=== PATIENT | female | born 1980 | race Caucasian/White ===

== ENCOUNTER 2017-08-20 17:09 | Observation (INO) | payer BC, OTHER ==
[~2017-08-20] VITALS: Ht 167.6 cm; Wt 97.5 kg
[~2017-08-20 17:09] MED LIST: ARIP10 PO; BIRTH CONTROL; LEVO-T25 MCG PO; Lamictal150 MG PO
[2017-08-20] MEDS ORDERED: Trihexyphenidyl2 MG PO (18:51)
[2017-08-20] MEDS ORDERED: Ativan0.5 MG PO (18:51)
[2017-08-20] MEDS ORDERED: DIVA500EC PO (18:52)
[2017-08-20] MEDS ORDERED: LATUDA80 MG PO (18:53)
[2017-08-20 18:54] LABS: Bilirubin, Urine Neg (Neg); Blood, Urine Neg (Neg); Glucose Qualitative, Urine Neg (Neg); Ketones, Urine Neg (Neg); Leukocyte Esterase, Urine Neg (Neg); Nitrite, Urine Neg (Neg); Protein, Urine Neg (Neg); Specific Gravity, Urine 1.015 (1.003-1.022); Urobilinogen, Urine NORM (Normal)
[2017-08-20] MEDS ORDERED: TEMA15 (18:54)
[2017-08-20] MEDS ORDERED: Abilify5 MG (18:57)
[2017-08-20 19:01] LABS: Appearance, Urine Clear (Clear); Color, Urine Yellow (P-Yellow)
[2017-08-20 19:05] LABS: Source, Urine Clean Catch
[2017-08-20 19:12] LABS: U Amphetamine Screen Not Detected; U Barbituate Screen Not Detected; U Benzodiazapine Screen DETECTED; U Buprenorphine Screen Not Detected; U Cannabinoids Screen Not Detected; U Cocaine Screen Not Detected; U Methadone Screen Not Detected; U Methamphetamine Screen Not Detected; U Opiates Screen Not Detected; U Oxycodone Screen Not Detected; U Phencyclidine Screen Not Detected; U Propoxyphene Screen Not Detected
[2017-08-20 19:13] LABS: BASOPHILS ABSOLUTE AUTO 0.03 K/mm3 (0.00-0.23); BASOPHILS PERCENT AUTO 0 % (0-2); EOSINOPHILS ABSOLUTE AUTO 0.17 K/mm3 (0.00-0.68); EOSINOPHILS PERCENT AUTO 2 % (0-6); Hematocrit 39.7 % (33.0-51.0); Hemoglobin 12.6 g/dL (11.5-16.0); IMMATURE GRAN ABSOLUTE AUTO 0.05 K/mm3 (0.00-0.10); IMMATURE GRAN PERCENT AUTO 1 % (0-1); LYMPHOCYTES ABSOLUTE AUTO 1.87 K/mm3 (0.84-5.20); LYMPHOCYTES PERCENT AUTO 24 % (21-46); MONOCYTES ABSOLUTE AUTO 0.78 K/mm3 (0.16-1.47); MONOCYTES PERCENT AUTO 10 % (4-13); Mean Corpuscular HGB 28.3 pg (26.0-34.0); Mean Corpuscular HGB Conc 31.7 g/dL (31.5-36.5); Mean Corpuscular Volume 89 fL (80-100); Mean Platelet Volume 9.5 fL (9.1-12.4); NEUTROPHILS ABSOLUTE AUTO 4.86 K/mm3 (1.96-9.15); NEUTROPHILS PERCENT AUTO 63 % (41-73); Platelet Count 309 K/mm3 (150-400); RDW Coefficient Variation 13.5 % (11.7-14.2); RDW Standard Deviation 44.2 fL (35.1-46.3); Red Blood Cell Count 4.45 M/mm3 (3.80-5.20); White Blood Cell Count 7.76 K/mm3 (4.00-11.30)
[2017-08-20 19:36] LABS: Alanine Aminotransfer (ALT/SGP 42 U/L (12-78); Albumin, Blood 3.9 g/dL (3.4-5.0); Alk Phos 68 U/L (50-136); Anion Gap 6 mmol/L (6-16); Aspartate Aminotrans (AST/SGOT 26 U/L (12-37); Bilirubin, Total 0.1 mg/dL (0.1-1.0); Blood Urea Nitrogen 14 mg/dL (8-24); CO2, Blood 30 mmol/L (21-32); Calcium, Blood 9.3 mg/dL (8.5-10.1); Chloride, Blood 104 mmol/L (98-108); Creatinine, Blood 0.94 mg/dL (0.40-1.00); Globulin, Blood 3.9 g/dL (2.2-4.0); Glomerular Filtration Rate >60 (60-); Glucose, Blood 101 mg/dL (70-99); Potassium, Blood 4.2 mmol/L (3.5-5.5); Sodium, Blood 140 mmol/L (136-145); Total Protein, Blood 7.8 g/dL (6.4-8.2); Valproic Acid 70.6 ug/mL (50.0-100.0)
== END 2017-08-24 14:45 | disposition short-term general hospital (02) ==
LOC: ER 17:09 → EOR 17:10
PROVIDERS: Emergency Medicine
DX: F31.4 Bipolar disorder, current episode depressed, severe, without psychotic features (principal); R45.851 Suicidal ideations; M79.89 Other specified soft tissue disorders; T50.905A Adverse effect of unspecified drugs, medicaments and biological substances, initial encounter; Z79.899 Other long term (current) drug therapy
CPT/HCPCS: 80053; 80164; 81003; 81025; 84439; 85025; 99285; G0378; Q3014

== ENCOUNTER → 2018-02-11 | Outpatient (CLI) | payer OTHER ==
[~2018-02-11] MED LIST changes: +Abilify5 MG; +Abilify5 MG PO; +Ativan0.5 MG PO; +DIVA500EC PO; +HYDPAM25 PO; +LATUDA120 MG PO; +OXCA300 PO; +TEMA15 PO; +TEMA30 PO; +Trihexyphenidyl2 MG PO
== END | disposition home or self-care (01) ==
LOC: LAB SHORT 19:07 → LAB EV 19:07
DX: R32 Unspecified urinary incontinence (principal)
CPT/HCPCS: 87086

== ENCOUNTER → 2018-02-24 | Outpatient (CLI) | payer OTHER | LOC: LAB SHORT 16:09 → LAB 16:09 | DX: N91.2 Amenorrhea, unspecified (principal) | CPT/HCPCS: 84702 ==

== ENCOUNTER → 2018-03-15 | Outpatient (CLI) | payer OTHER | END | disposition home or self-care (01) | LOC: LAB 12:12 → LAB SHORT 12:12 | DX: Z09 Encounter for follow-up examination after completed treatment for conditions other than malignant neoplasm (principal); Z86.14 Personal history of Methicillin resistant Staphylococcus aureus infection | CPT/HCPCS: 87081 ==

== ENCOUNTER → 2018-04-01 | Outpatient (CLI) | payer OTHER | END | disposition home or self-care (01) | LOC: LAB SHORT 11:19 → LAB 11:19 | DX: A49.02 Methicillin resistant Staphylococcus aureus infection, unspecified site (principal) | CPT/HCPCS: 87081 ==

== ENCOUNTER 2018-11-09 08:40 | Inpatient (IN) | payer OTHER ==
[~2018-11-09] VITALS: Ht 167.6 cm; Wt 104.3 kg
[2018-11-09] MEDS ORDERED: VENL75ER (09:19)
[2018-11-09] MEDS ORDERED: CEPH500 PO (09:20)
[2018-11-09 10:49] LABS: BASOPHILS ABSOLUTE AUTO 0.04 K/mm3 (0.00-0.23); BASOPHILS PERCENT AUTO 0 % (0-2); EOSINOPHILS ABSOLUTE AUTO 0.01 K/mm3 (0.00-0.68); EOSINOPHILS PERCENT AUTO 0 % (0-6); Hematocrit 33.3 % (33.0-51.0); Hemoglobin 11.1 g/dL (11.5-16.0); IMMATURE GRAN ABSOLUTE AUTO 0.24 K/mm3 (0.00-0.10); IMMATURE GRAN PERCENT AUTO 3 % (0-1); LYMPHOCYTES ABSOLUTE AUTO 1.38 K/mm3 (0.84-5.20); LYMPHOCYTES PERCENT AUTO 14 % (21-46); MONOCYTES ABSOLUTE AUTO 0.58 K/mm3 (0.16-1.47); MONOCYTES PERCENT AUTO 6 % (4-13); Mean Corpuscular HGB 29.1 pg (26.0-34.0); Mean Corpuscular HGB Conc 33.3 g/dL (31.5-36.5); Mean Corpuscular Volume 87 fL (80-100); Mean Platelet Volume 10.7 fL (9.1-12.4); NEUTROPHILS ABSOLUTE AUTO 7.39 K/mm3 (1.96-9.15); NEUTROPHILS PERCENT AUTO 77 % (41-73); Platelet Count 184 K/mm3 (150-400); RDW Coefficient Variation 13.8 % (11.7-14.2); RDW Standard Deviation 43.8 fL (35.1-46.3); Red Blood Cell Count 3.81 M/mm3 (3.80-5.20); White Blood Cell Count 9.64 K/mm3 (4.00-11.30)
--- NOTE | 2018-11-09 19:23 | NUR ---
pt out of unit( @ childbirth class) will assume care upon return to unit.
--- NOTE | 2018-11-09 22:08 | NUR ---
Pt's mother states she doesn't think the rash is Scabies. States that Katia has had rashes all her life. Pt denies ever having the rash "scrapped" and sent for evaluation.
[2018-11-10 18:17] LABS: PCO2 Cord - Arterial 73.5 mmHg (40-50); PO2 Cord - Arterial < 13 mmHg (16-20); pH Cord - Arterial 7.11 (7.28-7.35)
[2018-11-10 18:18] LABS: PCO2 Cord - Venous 65.5 mmHg (40-50); pH Umbilical Cord - Venous 7.12 (7.26-7.35)
[2018-11-10 18:19] LABS: PO2 Cord - Venous < 13 mmHg (28-32)
--- NOTE | 2018-11-10 18:35 | NUR ---
11/10/181834 Devi Bonds PRIMARY SECTION, VIABLE BABY BOY. WEIGHT 8 POUNDS, 13 OUNCES (4005 GRAMS). HEAD 13.75 INCHES. CHEST 14 INCHES. LENGTH 20 INCHES. PLACENTA 760 GRAMS. CORD SENT WITH ANTHONY FROM [facility].
--- NOTE | 2018-11-10 21:00 | NUR ---
REPORT GIVEN TO TRACEE ROSA.
[2018-11-11 05:52] LABS: BASOPHILS ABSOLUTE AUTO 0.02 K/mm3 (0.00-0.23); BASOPHILS PERCENT AUTO 0 % (0-2); EOSINOPHILS ABSOLUTE AUTO 0.01 K/mm3 (0.00-0.68); EOSINOPHILS PERCENT AUTO 0 % (0-6); Hemoglobin 8.5 g/dL (11.5-16.0); IMMATURE GRAN ABSOLUTE AUTO 0.17 K/mm3 (0.00-0.10); IMMATURE GRAN PERCENT AUTO 1 % (0-1); LYMPHOCYTES ABSOLUTE AUTO 1.59 K/mm3 (0.84-5.20); LYMPHOCYTES PERCENT AUTO 11 % (21-46); MONOCYTES ABSOLUTE AUTO 0.78 K/mm3 (0.16-1.47); MONOCYTES PERCENT AUTO 6 % (4-13); Mean Corpuscular HGB 27.5 pg (26.0-34.0); Mean Corpuscular HGB Conc 32.7 g/dL (31.5-36.5); Mean Platelet Volume 10.2 fL (9.1-12.4); NEUTROPHILS ABSOLUTE AUTO 11.54 K/mm3 (1.96-9.15); NEUTROPHILS PERCENT AUTO 82 % (41-73); Platelet Count 170 K/mm3 (150-400); Red Blood Cell Count 3.09 M/mm3 (3.80-5.20); White Blood Cell Count 14.11 K/mm3 (4.00-11.30)
[2018-11-11 05:58] LABS: Mean Corpuscular Volume 84 fL (80-100)
--- NOTE | 2018-11-11 11:00 | NUR ---
REFUSES [facility]
[2018-11-13] MEDS ORDERED: IBUP800 PO (09:35)
[2018-11-13] MEDS ORDERED: Percocet 5-3251 EACH PO (09:35)
--- NOTE | 2018-11-13 10:06 | NUR ---
DISCHARGE INSTRUCTIONS, WRITTEN AND VERBAL, GIVEN TO PT. ANSWERED ALL QUESTIONS AND CONCERNS. IV DISCONTINUED. FOLLOW UP APPOINTMENT SCHEDULED, CORE REFERRAL SENT, HEALTHY FAMILIES APPLIED FOR, PT IS SET UP WITH [facility]. WRITTEN PRESCRIPTIONS GIVEN TO PT. ALL PERSONAL BELONGINGS RETURNED. AWAITING FOR ARRIVAL OF MOTHER TO BE DRIVEN HOME. PT IS DISCHARGED ONCE RIDE ARRIVES.
== END 2018-11-13 12:32 | disposition home or self-care (01) | DRG 788 ==
LOC: OBS 08:40 → BC 08:40 → OBS 08:58 → BC 09:01
PROVIDERS: Obstetrics & Gynecology; ADMIT Nurse Practitioner Obstetrics & Gynecology
PROC: 3E0P7VZ Introduction of Hormone into Female Reproductive, Via Natural or Artificial Opening (ICD-10-PCS; 2018-11-09)
PROC: 3E033VJ Introduction of Other Hormone into Peripheral Vein, Percutaneous Approach (ICD-10-PCS; 2018-11-10)
PROC: 10D00Z1 Extraction of Products of Conception, Low, Open Approach (ICD-10-PCS; principal; 2018-11-10 20:45)
DX: O48.0 Post-term pregnancy (principal); O76 Abnormality in fetal heart rate and rhythm complicating labor and delivery; O62.1 Secondary uterine inertia; Z37.0 Single live birth; Z3A.40 40 weeks gestation of pregnancy; O99.344 Other mental disorders complicating childbirth; F39 Unspecified mood [affective] disorder
CPT/HCPCS: 36415; 59025; 82803; 85025; 85460; 86850; 86900; 86901; 88307; 96372; 99213; J0690; J1885; J2210; J2370; J2590; J2765; J2791; J3010; J7030; J7120